=== PATIENT | male | born 1940 | race Caucasian/White ===

== ENCOUNTER 2021-08-02 22:29 | Emergency (ER) | payer MEDICARE, OTHER ==
[~2021-08-02] VITALS: Ht 160 cm; Wt 82.0 kg
[2021-08-02 23:49] LABS: HEMATOCRIT 39.9 % (39.0-50.0); HEMOGLOBIN 12.9 g/dl (14.0-18.0); IMMATURE GRANULOCYTES 0.2 % (0.0-5.0); MEAN CORPUSCULAR HGB 30.1 pG CALC (26.0-32.0); MEAN CORPUSCULAR HGB CONC 32.3 g/dL CAL (32.0-36.0); NEUT# 7.07 thou/uL (1.82-7.42); RED BLOOD COUNT 4.29 mill/uL (4.70-6.10); RED CELL DISTRI WIDTH 13.5 % (11.5-15.5)
[2021-08-03 00:19] LABS: ALBUMIN 4.2 g/dL (3.2-5.0); ALKALINE PHOSPHATASE 76 u/l (38-126); AMYLASE 127 u/l (30-110); ANION GAP 12 (6-22 (CALC)); BILIRUBIN, TOTAL 0.7 mg/dL (0.0-1.4); BUN 31 mg/dL (8-23); BUN/CREATININE RATIO 20 (12-20 (CALC)); CARBON DIOXIDE 28 mmol/l (22-30); CHLORIDE 107 mmol/l (95-108); CREATININE 1.5 mg/dL (0.7-1.3); GFR 45 ML/MIN (>=60 (CALC)); GFR FOR AFR.AMER. 55 ML/MIN (>=60 (CALC)); LIPASE 184 u/l (23-300); POTASSIUM 4.6 mmol/l (3.5-5.1); SGOT/AST 23 u/l (19-48); SODIUM 142 mmol/l (137-146); TOTAL PROTEIN 7.5 g/dL (6.3-8.2)
[2021-08-03 00:25] LABS: ACT PARTIAL THROMBO TIME 25.4 SECONDS (20.0-32.5)
[2021-08-03 02:59] LABS: URINE BILIRUBIN - DIPSTICK NEGATIVE (NEGATIVE); URINE BLOOD DIPSTICK NEGATIVE (NEGATIVE); URINE COLOR YELLOW; URINE GLUCOSE - DIPSTICK NEGATIVE (NEGATIVE); URINE KETONE NEGATIVE (NEGATIVE); URINE LEUK ESTERASE NEGATIVE (NEGATIVE); URINE PH 6.5 (4.5-8.0); URINE PROTEIN - DIPSTICK NEGATIVE (NEG-TRACE); URINE UROBILINOGEN - DIPSTICK 0.2 E.U./dL (0.2)
[2021-08-03 03:00] LABS: URINE NITRITE - DIPSTICK NEGATIVE (Negative)
[2021-08-03] MEDS ORDERED: HYDROCO/APAP1 TA9 PO (03:16)
[2021-08-03 03:45] VITALS: BP 110/77
== END 2021-08-03 04:02 | disposition home or self-care (01) ==
LOC: ED 22:29
DX: R10.32 Left lower quadrant pain (principal); R59.0 Localized enlarged lymph nodes; E11.9 Type 2 diabetes mellitus without complications
CPT/HCPCS: Q9967

== ENCOUNTER 2021-09-30 09:14 | Emergency (ER) | payer OTHER, MEDICARE ==
[~2021-09-30] VITALS: Ht 162.6 cm; Wt 81.0 kg
[~2021-09-30 09:14] MED LIST: HYDROCO/APAP1 TA9 PO
[2021-09-30] MEDS ORDERED: ZPAK PO ×2 (10:54→16:26)
[2021-09-30] MEDS ORDERED: DECADRON6 MG PO ×2 (10:54→16:26)
[2021-09-30 11:03] VITALS: BP 129/83
== END 2021-09-30 11:10 | disposition home or self-care (01) | DRG 179 ==
LOC: ED 09:14
DX: U07.1 COVID-19 (principal); E11.9 Type 2 diabetes mellitus without complications; K21.9 Gastro-esophageal reflux disease without esophagitis

== ENCOUNTER 2022-07-18 12:27 | Observation (INO) | payer OTHER, MEDICARE ==
[~2022-07-18] VITALS: Ht 162.6 cm; Wt 82.6 kg
[2022-07-18] VITALS (9 sets, daily range): BP systolic 135–186; BP diastolic 53–95
[~2022-07-18 12:27] MED LIST changes: +DECADRON6 MG PO; +ZPAK PO
[2022-07-18 13:19] LABS: HEMATOCRIT 42.4 % (39.0-50.0); HEMOGLOBIN 14.3 g/dl (14.0-18.0); IMMATURE GRANULOCYTES 0.2 % (0.0-5.0); MEAN CELL VOLUME 91.4 fL CALC (80.0-100.0); MEAN CORPUSCULAR HGB 30.8 pG CALC (26.0-32.0); MEAN CORPUSCULAR HGB CONC 33.7 g/dL CAL (32.0-36.0); NEUT# 7.92 thou/uL (1.82-7.42); RED BLOOD COUNT 4.64 mill/uL (4.70-6.10); RED CELL DISTRI WIDTH 13.6 % (11.5-15.5)
[2022-07-18] MEDS ORDERED: OMEPRAZOLE20 MG PO (13:19)
[2022-07-18] MEDS ORDERED: EDTA DISODIU XX (13:19)
[2022-07-18] MEDS ORDERED: [UNRECOGNIZED DRUG - OTHER] PO (13:21)
[2022-07-18] MEDS ORDERED: MULTIVIT PO (13:21)
[2022-07-18] MEDS ORDERED: DILT-XR120 MG PO (13:23)
[2022-07-18] MEDS ORDERED: ASPIRIN81 MG PO (13:25)
[2022-07-18] MEDS ORDERED: LIPITOR80 M1 PO (13:26)
[2022-07-18] MEDS ORDERED: FUROSEMIDE20 MG PO (13:27)
[2022-07-18] MEDS ORDERED: GLIPIZIDE ER5 MG PO (13:27)
[2022-07-18] MEDS ORDERED: BENAZEPRIL40 M1 PO (13:28)
[2022-07-18 13:38] LABS: ALKALINE PHOSPHATASE 83 u/l (38-126); ANION GAP 13 (6-22 (CALC)); BUN 20 mg/dL (8-23); BUN/CREATININE RATIO 18 (12-20 (CALC)); CARBON DIOXIDE 28 mmol/l (22-30); CHLORIDE 104 mmol/l (95-108); CREATININE 1.1 mg/dL (0.7-1.3); GFR FOR AFR.AMER. > 60 ML/MIN (>=60 (CALC)); GFR OTHER RACES > 60 ML/MIN (>=60 (CALC)); LIPASE 77 u/l (23-300); POTASSIUM 4.5 mmol/l (3.5-5.1); SGOT/AST 35 u/l (19-48); SODIUM 141 mmol/l (137-146); TOTAL PROTEIN 8.8 g/dL (6.3-8.2)
[2022-07-18 13:46] LABS: ALBUMIN 5.1 g/dL (3.2-5.0); BILIRUBIN, TOTAL 1.5 mg/dL (0.0-1.4)
[2022-07-18 13:51] LABS: MYOGLOBIN 43 ng/mL (0 - 121)
[2022-07-18 14:23] LABS: URINE BILIRUBIN - DIPSTICK NEGATIVE (NEGATIVE); URINE BLOOD DIPSTICK TRACE-INTACT (NEGATIVE); URINE COLOR YELLOW; URINE GLUCOSE - DIPSTICK NEGATIVE (NEGATIVE); URINE KETONE NEGATIVE (NEGATIVE); URINE LEUK ESTERASE NEGATIVE (NEGATIVE); URINE PROTEIN - DIPSTICK NEGATIVE (NEG-TRACE); URINE SPECIFIC GRAVITY 1.015; URINE UROBILINOGEN - DIPSTICK 0.2 E.U./dL (0.2)
[2022-07-18 14:25] LABS: URINE NITRITE - DIPSTICK NEGATIVE (Negative)
[2022-07-18] MEDS ORDERED: MULTI VIT PO (15:48)
[2022-07-18] MEDS ORDERED: [UNRECOGNIZED DRUG - OTHER] PO (16:46)
[2022-07-18] MEDS ORDERED: ATORVASTATIN CA40 MG PO (16:47)
[2022-07-18] MEDS ORDERED: ASPIRIN325 MG PO (16:48)
[2022-07-18] MEDS ORDERED: CARDIZEM CD120 MG PO (16:53)
== END 2022-07-18 17:56 | disposition left against medical advice (07) | DRG 313 ==
LOC: ED 12:27 → ED-I 14:30 → ED 15:11 → MS2 15:12
PROVIDERS: Nurse Practitioner; ADMIT Internal Medicine; ATTEND Internal Medicine
DX: R07.9 Chest pain, unspecified (principal); I48.91 Unspecified atrial fibrillation; E11.9 Type 2 diabetes mellitus without complications; K21.9 Gastro-esophageal reflux disease without esophagitis; Z79.84 Long term (current) use of oral hypoglycemic drugs; Z88.8 Allergy status to other drugs, medicaments and biological substances
CPT/HCPCS: Q9967

== ENCOUNTER 2023-03-29 14:58 | Observation (INO) | payer OTHER, MEDICARE ==
[~2023-03-29] VITALS: Ht 162.6 cm; Wt 76.0 kg
[2023-03-29] VITALS (20 sets, daily range): BP systolic 126–214; BP diastolic 60–87
[~2023-03-29 14:58] MED LIST changes: +ASPIRIN325 MG PO; +ASPIRIN81 MG PO; +ATORVASTATIN CA40 MG PO; +BENAZEPRIL40 M1 PO; +CARDIZEM CD120 MG PO; +DILT-XR120 MG PO; +EDTA DISODIU XX; +FUROSEMIDE20 MG PO; +GLIPIZIDE ER5 MG PO; +LIPITOR80 M1 PO; +MULTI VIT PO; +MULTIVIT PO; +OMEPRAZOLE20 MG PO; +SILDENAFIL50 MG PO; +TRIAMCINOLON0.11 EX; +[UNRECOGNIZED DRUG - OTHER] PO; +[UNRECOGNIZED DRUG - OTHER] PO
[2023-03-29] MEDS ORDERED: XARELTO15 MG PO (15:15)
[2023-03-29] MEDS ORDERED: TOPROL XL25 M1 PO (15:16)
[2023-03-29 15:34] LABS: BASO% 0.8 % (0-3); EOS% 2.3 % (0-8); HEMATOCRIT 38.3 % (39.0-50.0); IMMATURE GRANULOCYTES 0.2 % (0.0-5.0); LYMPH% 13.9 % (15-41); MEAN CELL VOLUME 92.3 fL CALC (80.0-100.0); MEAN CORPUSCULAR HGB 28.7 pG CALC (26.0-32.0); MEAN CORPUSCULAR HGB CONC 31.1 g/dL CAL (32.0-36.0); MONO% 8.5 % (2-13); NEUT# 9.78 thou/uL (1.82-7.42); NEUT% 74.3 % (42-76); RED BLOOD COUNT 4.15 mill/uL (4.70-6.10); RED CELL DISTRI WIDTH 14.7 % (11.5-15.5)
[2023-03-29 15:35] LABS: GFR FOR AFR.AMER. > 60 ML/MIN (>=60 (CALC)); GFR OTHER RACES 58 ML/MIN (>=60 (CALC)); HEMOGLOBIN 11.9 g/dl (14.0-18.0)
[2023-03-29 15:48] LABS: ALBUMIN 4.3 g/dL (3.2-5.0); ALKALINE PHOSPHATASE 93 u/l (38-126); ANION GAP 14 (6-22 (CALC)); BUN 27 mg/dL (8-23); BUN/CREATININE RATIO 22 (12-20 (CALC)); CARBON DIOXIDE 26 mmol/l (22-30); CHLORIDE 105 mmol/l (95-108); CREATININE 1.2 mg/dL (0.7-1.3); GFR FOR AFR.AMER. > 60 ML/MIN (>=60 (CALC)); GFR OTHER RACES 58 ML/MIN (>=60 (CALC)); POTASSIUM 4.3 mmol/l (3.5-5.1); SGOT/AST 36 u/l (19-48); SODIUM 141 mmol/l (137-146); TOTAL PROTEIN 8.2 g/dL (6.3-8.2)
[2023-03-29 15:51] LABS: BILIRUBIN, TOTAL 0.8 mg/dL (0.2-1.3)
[2023-03-29 15:56] LABS: ACT PARTIAL THROMBO TIME 40.5 SECONDS (20.0-32.5); INTERNATIONAL NORMALIZED RATIO 1.5 RATIO (0.7-1.3); PROTHROMBIN TIME 14.2 SECONDS (9.0-12.5)
[2023-03-30] VITALS (7 sets, daily range): BP systolic 141–172; BP diastolic 66–70
[2023-03-30 02:26] LABS: BASO% 0.8 % (0-3); EOS% 2.6 % (0-8); HEMATOCRIT 33.9 % (39.0-50.0); HEMOGLOBIN 10.9 g/dl (14.0-18.0); IMMATURE GRANULOCYTES 0.2 % (0.0-5.0); LYMPH% 19.6 % (15-41); MEAN CELL VOLUME 91.9 fL CALC (80.0-100.0); MEAN CORPUSCULAR HGB 29.5 pG CALC (26.0-32.0); MEAN CORPUSCULAR HGB CONC 32.2 g/dL CAL (32.0-36.0); MONO% 10.8 % (2-13); NEUT# 6.65 thou/uL (1.82-7.42); RED BLOOD COUNT 3.69 mill/uL (4.70-6.10); RED CELL DISTRI WIDTH 14.5 % (11.5-15.5)
[2023-03-30 02:55] LABS: ALBUMIN 3.5 g/dL (3.2-5.0); ALKALINE PHOSPHATASE 73 u/l (38-126); ANION GAP 9 (6-22 (CALC)); BILIRUBIN, TOTAL 0.7 mg/dL (0.2-1.3); BUN 23 mg/dL (8-23); BUN/CREATININE RATIO 22 (12-20 (CALC)); CALCULATED LDLCHOLESTEROL 54 mg/dL (62-129 (CALC)); CARBON DIOXIDE 28 mmol/l (22-30); CHLORIDE 107 mmol/l (95-108); CHOLESTEROL HDL RATIO 3.2 (<4.4 (CALC)); CREATININE 1.1 mg/dL (0.7-1.3); GFR FOR AFR.AMER. > 60 ML/MIN (>=60 (CALC)); GFR OTHER RACES > 60 ML/MIN (>=60 (CALC)); HDL CHOLESTEROL 35 mg/dL (39.0-59.0); MAGNESIUM 1.9 mg/dL (1.6-2.3); POTASSIUM 4.2 mmol/l (3.5-5.1); SGOT/AST 23 u/l (19-48); SODIUM 141 mmol/l (137-146); TOTAL CHOLESTEROL 114 mg/dl (0-199); TOTAL TRIGLYCERIDES 123 mg/dl (0-149); VLDL CHOLESTROL 25 mg/dl (0-38 (CALC))
[2023-03-30 02:56] LABS: TOTAL PROTEIN 6.4 g/dL (6.3-8.2)
[2023-03-30 03:26] LABS: TSH, 3RD GENERATION 1.44 uIU/mL (0.47 - 4.68)
[2023-03-30 05:26] LABS: URINE BILIRUBIN - DIPSTICK NEGATIVE (NEGATIVE); URINE BLOOD DIPSTICK NEGATIVE (NEGATIVE); URINE COLOR YELLOW; URINE GLUCOSE - DIPSTICK NEGATIVE (NEGATIVE); URINE KETONE NEGATIVE (NEGATIVE); URINE LEUK ESTERASE NEGATIVE (NEGATIVE); URINE PH 6.5 (4.5-8.0); URINE PROTEIN - DIPSTICK NEGATIVE (NEG-TRACE); URINE SPECIFIC GRAVITY <=1.005; URINE UROBILINOGEN - DIPSTICK 0.2 E.U./dL (0.2)
[2023-03-30 05:39] LABS: URINE NITRITE - DIPSTICK NEGATIVE (Negative)
== END 2023-03-30 12:53 | disposition home or self-care (01) | DRG 69 ==
LOC: ED 14:58 → MS2 19:42
PROVIDERS: Family Medicine; Nurse Practitioner; Nurse Practitioner Family; ADMIT Internal Medicine; ATTEND Internal Medicine
DX: G45.9 Transient cerebral ischemic attack, unspecified (principal); R07.9 Chest pain, unspecified; I10 Essential (primary) hypertension; E11.9 Type 2 diabetes mellitus without complications; I25.10 Atherosclerotic heart disease of native coronary artery without angina pectoris; I48.91 Unspecified atrial fibrillation; E78.5 Hyperlipidemia, unspecified; K21.9 Gastro-esophageal reflux disease without esophagitis; Z79.84 Long term (current) use of oral hypoglycemic drugs; Z95.2 Presence of prosthetic heart valve; Z79.01 Long term (current) use of anticoagulants

== ENCOUNTER 2023-06-01 08:07 | Observation (INO) | payer OTHER, MEDICARE ==
[~2023-06-01] VITALS: Ht 162.6 cm; Wt 75.4 kg
[2023-06-01] VITALS (32 sets, daily range): BP systolic 121–208; BP diastolic 56–96
[~2023-06-01 08:07] MED LIST changes: +TOPROL XL25 M1 PO; +XARELTO15 MG PO
[2023-06-01 08:28] LABS: BASO% 0.8 % (0-3); EOS% 5.7 % (0-8); HEMATOCRIT 40.7 % (39.0-50.0); HEMOGLOBIN 13.5 g/dl (14.0-18.0); IMMATURE GRANULOCYTES 0.1 % (0.0-5.0); LYMPH% 22.9 % (15-41); MEAN CELL VOLUME 88.9 fL CALC (80.0-100.0); MEAN CORPUSCULAR HGB 29.5 pG CALC (26.0-32.0); MEAN CORPUSCULAR HGB CONC 33.2 g/dL CAL (32.0-36.0); NEUT# 4.7 thou/uL (1.82-7.42); NEUT% 60.5 % (42-76); RED BLOOD COUNT 4.58 mill/uL (4.70-6.10); RED CELL DISTRI WIDTH 13.1 % (11.5-15.5)
[2023-06-01] MEDS ORDERED: ELIQUIS5 MG PO (08:31)
[2023-06-01 08:59] LABS: ALKALINE PHOSPHATASE 90 u/l (38-126); ANION GAP 11 (6-22 (CALC)); BILIRUBIN, TOTAL 0.8 mg/dL (0.2-1.3); BUN 19 mg/dL (8-23); BUN/CREATININE RATIO 17 (12-20 (CALC)); CARBON DIOXIDE 29 mmol/l (22-30); CHLORIDE 106 mmol/l (95-108); CREATININE 1.1 mg/dL (0.7-1.3); GFR FOR AFR.AMER. > 60 ML/MIN (>=60 (CALC)); GFR OTHER RACES > 60 ML/MIN (>=60 (CALC)); POTASSIUM 3.7 mmol/l (3.5-5.1); SGOT/AST 34 u/l (19-48); SODIUM 142 mmol/l (137-146)
[2023-06-01 09:01] LABS: INTERNATIONAL NORMALIZED RATIO 1.1 RATIO (0.7-1.3); PROTHROMBIN TIME 10.1 SECONDS (9.0-12.5)
[2023-06-01 09:03] LABS: ALBUMIN 4.3 g/dL (3.2-5.0); TOTAL PROTEIN 7.7 g/dL (6.3-8.2)
[2023-06-01 09:38] LABS: URINE BILIRUBIN - DIPSTICK Negative (NEGATIVE); URINE BLOOD DIPSTICK Trace-intact (NEGATIVE); URINE COLOR Yellow; URINE GLUCOSE - DIPSTICK Negative (NEGATIVE); URINE KETONE Negative (NEGATIVE); URINE LEUK ESTERASE Negative (NEGATIVE); URINE NITRITE - DIPSTICK Negative (Negative); URINE PROTEIN - DIPSTICK Negative (NEG-TRACE); URINE SPECIFIC GRAVITY 1.015; URINE UROBILINOGEN - DIPSTICK 0.2 E.U./dL (0.2)
[2023-06-02 03:49] VITALS: BP 138/68
[2023-06-02 04:50] LABS: BASO% 0.6 % (0-3); EOS% 4.7 % (0-8); HEMATOCRIT 39.3 % (39.0-50.0); HEMOGLOBIN 13.1 g/dl (14.0-18.0); IMMATURE GRANULOCYTES 0.4 % (0.0-5.0); LYMPH% 20.8 % (15-41); MEAN CELL VOLUME 88.7 fL CALC (80.0-100.0); MEAN CORPUSCULAR HGB 29.6 pG CALC (26.0-32.0); MEAN CORPUSCULAR HGB CONC 33.3 g/dL CAL (32.0-36.0); MONO% 8.9 % (2-13); NEUT# 5.42 thou/uL (1.82-7.42); NEUT% 64.6 % (42-76); RED BLOOD COUNT 4.43 mill/uL (4.70-6.10); RED CELL DISTRI WIDTH 13.2 % (11.5-15.5)
[2023-06-02 05:07] LABS: ALBUMIN 3.7 g/dL (3.2-5.0); ALKALINE PHOSPHATASE 83 u/l (38-126); ANION GAP 11 (6-22 (CALC)); BUN 18 mg/dL (8-23); BUN/CREATININE RATIO 17 (12-20 (CALC)); CALCULATED LDLCHOLESTEROL 81 mg/dL (62-129 (CALC)); CARBON DIOXIDE 28 mmol/l (22-30); CHLORIDE 106 mmol/l (95-108); CHOLESTEROL HDL RATIO 3.8 (<4.4 (CALC)); CREATININE 1.1 mg/dL (0.7-1.3); GFR FOR AFR.AMER. > 60 ML/MIN (>=60 (CALC)); GFR OTHER RACES > 60 ML/MIN (>=60 (CALC)); HDL CHOLESTEROL 37 mg/dL (39.0-59.0); MAGNESIUM 1.8 mg/dL (1.6-2.3); POTASSIUM 3.7 mmol/l (3.5-5.1); SGOT/AST 26 u/l (19-48); SODIUM 140 mmol/l (137-146); TOTAL CHOLESTEROL 143 mg/dl (0-199); TOTAL PROTEIN 6.5 g/dL (6.3-8.2); TOTAL TRIGLYCERIDES 119 mg/dl (0-149); VLDL CHOLESTROL 24 mg/dl (0-38 (CALC))
[2023-06-02 06:31] VITALS: BP 122/64
[2023-06-02 08:22] VITALS: BP 122/64
== END 2023-06-02 11:38 | disposition home or self-care (01) | DRG 313 ==
LOC: ED 08:07 → ED-I 12:08 → ED 12:32 → MS2 12:33
PROVIDERS: Emergency Medicine; Nurse Practitioner Family; ADMIT Student in an Organized Health Care Education/Training Program; ATTEND Student in an Organized Health Care Education/Training Program
DX: R07.89 Other chest pain (principal); I16.1 Hypertensive emergency; I10 Essential (primary) hypertension; E11.9 Type 2 diabetes mellitus without complications; I25.10 Atherosclerotic heart disease of native coronary artery without angina pectoris; I48.91 Unspecified atrial fibrillation; K21.9 Gastro-esophageal reflux disease without esophagitis; Z79.84 Long term (current) use of oral hypoglycemic drugs; Z95.2 Presence of prosthetic heart valve

== ENCOUNTER 2024-08-19 15:45 | Observation (INO) | payer OTHER, MEDICARE ==
[2024-08-19] VITALS (22 sets, daily range): BP systolic 96–154; BP diastolic 40–72
[~2024-08-19] VITALS: Ht 162.6 cm; Wt 74.0 kg
[~2024-08-19 15:45] MED LIST changes: +ASPIRIN ADULT L81 M2 PO; +DOXYCYCL HYC100 M4 PO; +ELIQUIS5 MG PO; +MUPIROCIN2 % EX
[2024-08-19 16:50] LABS: BASO% 0.4 % (0-3); EOS% 2.1 % (0-8); HEMATOCRIT 37.7 % (39.0-50.0); HEMOGLOBIN 12.8 g/dl (14.0-18.0); IMMATURE GRANULOCYTES 0.3 % (0.0-5.0); LYMPH% 6.7 % (15-41); MEAN CELL VOLUME 90.4 fL CALC (80.0-100.0); MEAN CORPUSCULAR HGB 30.7 pG CALC (26.0-32.0); MONO% 10.1 % (2-13); NEUT# 10.87 thou/uL (1.82-7.42); NEUT% 80.4 % (42-76); RED BLOOD COUNT 4.17 mill/uL (4.70-6.10); RED CELL DISTRI WIDTH 12.5 % (11.5-15.5)
[2024-08-19 17:13] LABS: BILIRUBIN, TOTAL 1.1 mg/dL (0.2-1.3); POTASSIUM 4.8 mmol/l (3.5-5.1)
[2024-08-19 17:15] LABS: ALBUMIN 4.5 g/dL (3.2-5.0); CREATININE 2.5 mg/dL (0.7-1.3); TOTAL PROTEIN 7.9 g/dL (6.3-8.2)
[2024-08-19 17:41] LABS: TSH, 3RD GENERATION 2.44 uIU/mL (0.47 - 4.68)
[2024-08-19] MEDS ORDERED: SODIUM CHLORIDE 0.9% 1,000 ML IV ONE (18:05)
[2024-08-19] MEDS ORDERED: SODIUM CHLORIDE 0.9% 1,000 ML IV PRN ×2 (18:20)
[2024-08-19] MEDS ORDERED: ACETAMINOPHEN 325 MG/TAB PO PRN (18:20)
[2024-08-19] MEDS ORDERED: MAGNESIUM HYDROXIDE 30 ML UDC PO PRN (18:20)
[2024-08-19 18:22] LABS: URINE BILIRUBIN - DIPSTICK Negative (NEGATIVE); URINE BLOOD DIPSTICK Trace-intact (NEGATIVE); URINE GLUCOSE - DIPSTICK Negative (NEGATIVE); URINE KETONE Negative (NEGATIVE); URINE LEUK ESTERASE Negative (NEGATIVE); URINE NITRITE - DIPSTICK Negative (Negative); URINE PH 5.5 (4.5-8.0); URINE PROTEIN - DIPSTICK Negative (NEG-TRACE); URINE SPECIFIC GRAVITY 1.015; URINE UROBILINOGEN - DIPSTICK 0.2 E.U./dL (0.2)
[2024-08-19 18:23] LABS: URINE COLOR Yellow
[2024-08-19] MEDS ORDERED: INSULIN LISPRO 100 UNITS/ML ML SC SCH (21:00)
[2024-08-19] MEDS ORDERED: APIXABAN BASE 2.5 MG/TAB TAB PO SCH (21:00)
[2024-08-20 03:30] VITALS: BP 129/56
[2024-08-20 05:19] LABS: BASO% 0.5 % (0-3); EOS% 7.2 % (0-8); HEMATOCRIT 35.6 % (39.0-50.0); HEMOGLOBIN 11.9 g/dl (14.0-18.0); IMMATURE GRANULOCYTES 0.2 % (0.0-5.0); LYMPH% 15.5 % (15-41); MEAN CORPUSCULAR HGB 30.7 pG CALC (26.0-32.0); MEAN CORPUSCULAR HGB CONC 33.4 g/dL CAL (32.0-36.0); MONO% 15.2 % (2-13); NEUT# 5.71 thou/uL (1.82-7.42); NEUT% 61.4 % (42-76); RED BLOOD COUNT 3.87 mill/uL (4.70-6.10); RED CELL DISTRI WIDTH 12.6 % (11.5-15.5)
[2024-08-20 05:37] LABS: ALBUMIN 3.6 g/dL (3.2-5.0); BILIRUBIN, TOTAL 0.8 mg/dL (0.2-1.3); CHOLESTEROL HDL RATIO 3.3 (<4.4 (CALC)); CREATININE 2.1 mg/dL (0.7-1.3); POTASSIUM 4.3 mmol/l (3.5-5.1); TOTAL PROTEIN 6.4 g/dL (6.3-8.2)
[2024-08-20] MEDS ORDERED: ASPIRIN 81 MG/TAB PO SCH (09:00)
[2024-08-20] MEDS ORDERED: dilTIAZem HCl EXTENDED RELEASE 120 MG CAP PO SCH (09:00)
[2024-08-20] MEDS ORDERED: PANTOPRAZOLE SODIUM Sesquihydr 40 MG/TAB PO SCH (09:00)
[2024-08-20 16:51] VITALS: BP 141/74
[2024-08-20 18:53] VITALS: BP 156/73
[2024-08-21 04:30] VITALS: BP 110/61
[2024-08-21 05:37] LABS: BASO% 0.7 % (0-3); EOS% 2.4 % (0-8); HEMATOCRIT 33.6 % (39.0-50.0); HEMOGLOBIN 11.5 g/dl (14.0-18.0); IMMATURE GRANULOCYTES 0.3 % (0.0-5.0); LYMPH% 10.9 % (15-41); MEAN CELL VOLUME 90.3 fL CALC (80.0-100.0); MEAN CORPUSCULAR HGB 30.9 pG CALC (26.0-32.0); MEAN CORPUSCULAR HGB CONC 34.2 g/dL CAL (32.0-36.0); MONO% 11.5 % (2-13); NEUT# 8.69 thou/uL (1.82-7.42); NEUT% 74.2 % (42-76); RED BLOOD COUNT 3.72 mill/uL (4.70-6.10); RED CELL DISTRI WIDTH 12.3 % (11.5-15.5)
[2024-08-21 05:46] LABS: ALBUMIN 3.3 g/dL (3.2-5.0); BILIRUBIN, TOTAL 0.8 mg/dL (0.2-1.3); CREATININE 1.8 mg/dL (0.7-1.3); MAGNESIUM 1.7 mg/dL (1.6-2.3); POTASSIUM 4.8 mmol/l (3.5-5.1); TOTAL PROTEIN 6.1 g/dL (6.3-8.2)
[2024-08-21 06:42] VITALS: BP 131/58
[2024-08-21 07:40] VITALS: BP 131/58
[2024-08-21 09:01] VITALS: BP 131/58
[2024-08-21] MEDS ORDERED: ELIQUIS2.5 MG PO (11:06)
== END 2024-08-21 12:37 | disposition home or self-care (01) | DRG 684 ==
LOC: ED 15:45 → ED-I 17:30 → ED 18:02 → MS2 18:03
PROVIDERS: Family Medicine; ADMIT Student in an Organized Health Care Education/Training Program; ATTEND Student in an Organized Health Care Education/Training Program
DX: N17.9 Acute kidney failure, unspecified (principal); E86.0 Dehydration; R42 Dizziness and giddiness; I12.9 Hypertensive chronic kidney disease with stage 1 through stage 4 chronic kidney disease, or unspecified chronic kidney disease; E11.22 Type 2 diabetes mellitus with diabetic chronic kidney disease; N18.9 Chronic kidney disease, unspecified; I25.10 Atherosclerotic heart disease of native coronary artery without angina pectoris; I48.0 Paroxysmal atrial fibrillation; K21.9 Gastro-esophageal reflux disease without esophagitis; Z79.01 Long term (current) use of anticoagulants; Z79.84 Long term (current) use of oral hypoglycemic drugs
CPT/HCPCS: J1815

== ENCOUNTER 2024-11-15 04:26 | Emergency (ER) | payer OTHER, MEDICARE ==
[~2024-11-15] VITALS: Ht 162.6 cm; Wt 70.0 kg
[~2024-11-15 04:26] MED LIST changes: +ELIQUIS2.5 MG PO
[2024-11-15 04:41] VITALS: BP 168/93
[2024-11-15 05:01] VITALS: BP 172/72
[2024-11-15 05:31] VITALS: BP 134/100
[2024-11-15 05:39] LABS: BASO% 0.5 % (0-3); EOS% 1.2 % (0-8); HEMATOCRIT 38.4 % (39.0-50.0); HEMOGLOBIN 12.7 g/dl (14.0-18.0); IMMATURE GRANULOCYTES 0.3 % (0.0-5.0); MEAN CELL VOLUME 92.1 fL CALC (80.0-100.0); MEAN CORPUSCULAR HGB 30.5 pG CALC (26.0-32.0); MEAN CORPUSCULAR HGB CONC 33.1 g/dL CAL (32.0-36.0); MONO% 14.9 % (2-13); NEUT# 5.84 thou/uL (1.82-7.42); NEUT% 78.1 % (42-76); RED BLOOD COUNT 4.17 mill/uL (4.70-6.10); RED CELL DISTRI WIDTH 13.6 % (11.5-15.5)
[2024-11-15 05:50] LABS: ALBUMIN 4.5 g/dL (3.2-5.0); ALKALINE PHOSPHATASE 75 u/l (38-126); ANION GAP 14 (6-22 (CALC)); BILIRUBIN, TOTAL 0.8 mg/dL (0.2-1.3); BUN 51 mg/dL (8-23); BUN/CREATININE RATIO 22 (12-20 (CALC)); CARBON DIOXIDE 28 mmol/l (22-30); CHLORIDE 103 mmol/l (95-108); CREATININE 2.3 mg/dL (0.7-1.3); ESTIMATED GFR 28 ML/MIN (>=90 (CALC)); POTASSIUM 4.8 mmol/l (3.5-5.1); SGOT/AST 31 u/l (19-48); SODIUM 140 mmol/l (137-146); TOTAL PROTEIN 7.9 g/dL (6.3-8.2)
[2024-11-15 06:16] LABS: URINE BILIRUBIN - DIPSTICK Negative (NEGATIVE); URINE BLOOD DIPSTICK Trace-intact (NEGATIVE); URINE GLUCOSE - DIPSTICK Negative (NEGATIVE); URINE KETONE Negative (NEGATIVE); URINE LEUK ESTERASE Negative (NEGATIVE); URINE NITRITE - DIPSTICK Negative (Negative); URINE PROTEIN - DIPSTICK Trace mg/dL (NEG-TRACE); URINE SPECIFIC GRAVITY 1.015
[2024-11-15 06:29] LABS: URINE COLOR Yellow
[2024-11-15] MEDS ORDERED: OSELTAMIVIR PHOSPHATE 30 MG/CAP PO ONE (06:45)
[2024-11-15] MEDS ORDERED: TAMIFLU30 MG PO (07:00)
[2024-11-15 07:28] VITALS: BP 134/87
== END 2024-11-15 07:28 | disposition home or self-care (01) | DRG 195 ==
LOC: ED 04:26
PROVIDERS: Family Medicine
DX: J10.1 Influenza due to other identified influenza virus with other respiratory manifestations (principal); I11.0 Hypertensive heart disease with heart failure; I50.9 Heart failure, unspecified; E11.9 Type 2 diabetes mellitus without complications; I48.91 Unspecified atrial fibrillation; K21.9 Gastro-esophageal reflux disease without esophagitis; Z95.2 Presence of prosthetic heart valve; Z79.84 Long term (current) use of oral hypoglycemic drugs; Z20.822 Contact with and (suspected) exposure to COVID-19